=== PATIENT | female | born 1970 | race Caucasian/White ===

== ENCOUNTER 2020-01-01 18:57 | Emergency (ER) | payer OTHER ==
[~2020-01-01] VITALS: Ht 167.6 cm; Wt 70.3 kg
[~2020-01-01 18:57] MED LIST: BACTRIM DS TAB1 EACH PO; NOHOMEMEDICATIONS; PYRIDIUM200 MG PO
[2020-01-01 20:01] LABS: BASOPHILS 0.5 % (0.0-2.0); EOSINOPHILS 2.3 % (0.0-3.0); HEMATOCRIT 40.1 % (37.0-47.0); HEMOGLOBIN 13.6 gm/dL (12.0-15.0); LYMPHOCYTES 34.3 % (24.0-44.0); MCH 33.7 pg (26.0-34.0); MCHC 33.9 g/dL (28.0-37.0); MCV 99.4 fL (80.0-100.0); MONOCYTES 8.4 % (1.0-8.0); PLATELET COUNT 198 thou/uL (150-400); POLYS 54.5 % (36.0-66.0); RBC 4.03 mil/uL (4.20-5.00); RDW 12.4 % (10.5-14.5); WBC 5.6 thou/uL (4.0-11.0)
[2020-01-01 20:11] LABS: POTASSIUM 3.6 mmol/L (3.5-5.1)
[2020-01-01 20:16] LABS: ALBUMIN 3.9 g/dL (3.4-5.0); TOTAL BILIRUBIN 0.2 mg/dL (<0.1-1.0); TOTAL PROTEIN 7.9 g/dL (6.4-8.2)
[2020-01-01 21:12] VITALS: BP 154/90
== END 2020-01-01 21:13 | disposition home or self-care (01) ==
LOC: ER 18:57
PROVIDERS: Emergency Medicine
DX: R19.7 Diarrhea, unspecified (principal); K92.1 Melena; R10.13 Epigastric pain; R10.10 Upper abdominal pain, unspecified; J34.89 Other specified disorders of nose and nasal sinuses; L98.499 Non-pressure chronic ulcer of skin of other sites with unspecified severity